=== PATIENT | female | born 1990 | race Caucasian/White ===

== ENCOUNTER → 2018-04-24 | Outpatient (CLI) | payer BC, OTHER ==
[~2018-04-24] MED LIST: ADVIL PO; ALEVE PO; ARTHROTEC 75 T1 EACH; HYOSCYAMINE0.125 MG PO; IRON; MELATONIN PO; NORCO 7.5-3251 EACH PO; PANTOPRAZOLE SO40 MG PO; PENTASA500 MG PO; RANITIDINE PO; TYLENOL PO; ULTRAM50 MG PO; Z.0.FLEXERIL10 MG; Z.0.NEXIUM40 MG; ZOFRAN8 MG PO; [UNRECOGNIZED DRUG - OTHER]
--- NOTE | 2018-04-24 18:01 | Electroencephalogram ---
DATE OF STUDY: April 24, 2018 REQUESTING PHYSICIAN: Dr. Michael Timmons. PATIENT HISTORY: This 28-year-old woman with history of seizure is having an EEG for evaluation of epileptiform activity. It is unknown if the patient is taking any medications that might affect the EEG. TECHNIQUE: This is a routine, portable EEG, recorded digitally using the International 10-20 Electrode Placement System and done in the laboratory with the patient awake. The EEG is adequate for interpretation. DESCRIPTION: Well-organized, well-sustained, 9-10 Hz activity is best seen symmetrically in the posterior head regions. No focal or epileptiform activity is recorded. Sleep is not recorded. Photic stimulation produces a driving response. There is no slowing seen with hyperventilation. INTERPRETATION: This is a normal EEG with the patient awake. No epileptiform discharges are seen. Job#: [id number] MTDD
== END ==
LOC: SLEEP 10:18
PROVIDERS: ATTEND Radiology Neuroradiology
DX: G40.209 Localization-related (focal) (partial) symptomatic epilepsy and epileptic syndromes with complex partial seizures, not intractable, without status epilepticus (principal)
CPT/HCPCS: 95812

== ENCOUNTER → 2018-10-20 | Outpatient (CLI) | payer BC, OTHER ==
--- NOTE | 2018-10-20 11:57 | Diagnostic Imaging Report ---
EXAM: Right upper quadrant abdominal ultrasound INDICATION: Abdominal pain. COMPARISON: None. TECHNIQUE: Transverse and longitudinal images of the right upper quadrant abdomen were obtained FINDINGS: Liver: Size: Measures 17.3 cm in the right midclavicular line Appearance: Increased echogenicity, smooth contour Mass: No focal masses Gallbladder: Status post cholecystectomy. Bile Ducts: Intrahepatic Ducts: No dilatation Extrahepatic Ducts: Common bile duct measures 0.5 cm, no dilatation Pancreas: Partially visualized pancreas appears unremarkable. Kidney: The right kidney measures 12.2 cm without evidence of hydronephrosis or stone. Vessels: Aorta: The visualized proximal abdominal aorta is unremarkable. The distal aorta is not well-visualized due to overlying bowel gas. Inferior Vena Cava: Visualized portions are normal Main Portal Vein: 1.4 cm, normal size with hepatopetal flow. Free Fluid: No evidence of ascites. IMPRESSION: Hepatomegaly with hepatic steatosis. Status post cholecystectomy. Signed by: Dr. Evelin Lipscomb MD on 10/20/2018 11:53 AM
== END ==
LOC: US 10:32
PROVIDERS: ATTEND Internal Medicine Gastroenterology
DX: R10.84 Generalized abdominal pain (principal)
CPT/HCPCS: 76705